=== PATIENT | female | born 1960 | race Caucasian/White ===

== ENCOUNTER 2017-08-31 02:23 | Emergency (ER) | payer BC ==
[2017-08-31] MEDS ORDERED: Ondansetron 4 MG/2 ML SDV IVPUSH ONE (02:39)
[2017-08-31] MEDS ORDERED: Ketorolac 30 MG/ML SDV IVPUSH ONE (02:39)
[2017-08-31] MEDS ORDERED: Sodium Chloride 0.9% 1,000 ML IV SCH (02:45)
[2017-08-31] MEDS ORDERED: fentaNYL 100 MCG/2 ML SDV IVPUSH ONE (03:10)
[2017-08-31] MEDS ORDERED: LORazepam 2 MG/ML MDV IVPUSH ONE (04:19)
[2017-08-31] MEDS ORDERED: HYDROmorphone 2 MG/ML SDV IVPUSH ONE (04:19)
[2017-08-31] MEDS ORDERED: Cyclobenzaprine 10 MG Tab PO ONE (06:00)
[2017-08-31] MEDS ORDERED: Acetaminophen/HYDROcodone 325-5 MG Tab PO ONE (06:00)
[2017-08-31] MEDS ORDERED: Ondansetron 8 MG Tab.DIS PO ONE (06:13)
--- NOTE | 2017-08-31 21:02 | ER ---
DATE SEEN: 08/31/2017 REASON FOR VISIT: Back pain. HISTORY OF PRESENT ILLNESS: This is a 57-year-old female complaining of back pain that started at about 9 o'clock, left-sided radiates to the flank, severe, worse with any movement. Nothing seems to help. She had been vacuuming, but no other heavy lifting. REVIEW OF SYSTEMS: All other systems unremarkable. ALLERGIES: No known allergies. MEDICATIONS: Please see the nurse's notes. PHYSICAL EXAMINATION: GENERAL: She appears in [id number] pain. VITAL SIGNS: Initial vital signs unremarkable. Pulse is 64, temperature 97.8, and respiratory rate is 15. ENT: Negative. NECK: Supple. CHEST: Clear. ABDOMEN: Soft, distended the left flank and also the left costovertebral angle area. NEUROLOGIC: Gait stooping, antalgic, difficult and stiff. CARDIOVASCULAR: Normal. LABORATORY DATA: Creatinine 1.4, sodium 139, and potassium is 3.2. CBC unremarkable. UA normal. CT abdomen and pelvis unremarkable. IMPRESSION: Back pain, lower back, unknown reason. TREATMENT: Initially, Toradol and IV fluids did not help. Gave fentanyl with minimal improvement. 1 mg of Dilaudid and 0.5 of lorazepam finally helped. She was discharged on Flexeril 10 mg b.i.d. and hydrocodone 1 tablet q.i.d. p.r.n. She is advised to see a physician or to see her PCP tomorrow. TIME SEEN: 0300 hours. /[id number] BENNIE/JANET
== END 2017-08-31 06:20 | disposition home or self-care (01) ==
LOC: FB.ED 02:23
DX: M54.5 Low back pain (principal)
CPT/HCPCS: 36415; 74177; 80048; 81001; 85025; 96361; 96374; 96375; 99284; A9270; J1170; J1885; J2060; J2405; J3010; J7040